=== PATIENT | female | born 1995 | race American Indian/Alaskan Native ===

== ENCOUNTER 2025-08-09 15:09 | Inpatient (IN) | payer BC ==
[2025-08-09] MEDS ORDERED: Sodium Chloride 0.9% 10 ML Syringe FLUSH PRN (16:20)
[2025-08-09] MEDS ORDERED: Carboprost Tromethamine 250 MCG/1 mL Vial IM PRN (16:20)
[2025-08-09] MEDS ORDERED: Water For Irrigation,Sterile 1,000 ML Container IRR PRN (16:20)
[2025-08-09] MEDS ORDERED: Ondansetron 4 MG/2 ML SDV IVPUSH PRN (16:20)
[2025-08-09] MEDS ORDERED: Sodium Chloride 0.9% 2.5 ML Syringe FLUSH PRN (16:20)
[2025-08-09] MEDS ORDERED: Oxytocin/0.9 % Sodium Chloride 30 UNIT/500 ML BAG IV SCH (16:30)
[2025-08-09 16:33] LABS: MEAN PLATELET VOLUME 12.5 fL (9.4-12.3); NRBC ABSOLUTE 0.00 K/uL (0.00-0.02); NRBC PERCENT 0.0 /100WBC (0.0-0.2); PLATELET COUNT,PLT 238 K/uL (150-400); RED BLOOD CELL COUNT 4.77 M/uL (4.10-5.30); WHITE BLOOD CELL COUNT,WBC 10.60 K/uL (3.9-11.3)
[2025-08-09] MEDS ORDERED: Terbutaline 1 MG/ML SDV SUBCUT PRN (18:01)
[2025-08-09] MEDS: Lactated Ringers 1,000 ML IV SCH (18:42)
[2025-08-09] MEDS: Oxytocin/0.9 % Sodium Chloride 30 UNIT/500 ML BAG IV SCH (18:43)
[2025-08-09] MEDS: Butorphanol 1 MG/ML SDV IVPUSH PRN (22:12)
[2025-08-09] MEDS ORDERED: Witch Hazel Medicated Pads 40/Jar TOP PRN (23:51)
[2025-08-09] MEDS ORDERED: Aluminum Hydroxide/Magnesium Hydroxide/Simethicone Susp 30 ML Cup PO PRN (23:51)
[2025-08-09] MEDS ORDERED: Benzocaine/Menthol 20%-0.5% Spray 78 GM Cannister TOP PRN (23:51)
[2025-08-09] MEDS ORDERED: Lanolin 100% Cream 7 GM Tube TOP PRN (23:51)
[2025-08-10 00:22] LABS: PH,UMBILICAL ARTERIAL 7.179 (7.18-7.38)
[2025-08-10 00:23] LABS: PH,UMBILICAL VENOUS 7.289 (7.25-7.45)
[2025-08-10 06:43] LABS: BASOPHILS ABSOLUTE AUTO 0.05 K/uL (0.00-0.20); BASOPHILS PERCENT AUTO 0.3 % (0.0-1.0); EOSINOPHILS ABSOLUTE AUTO 0.01 K/uL (0.00-0.45); EOSINOPHILS PERCENT AUTO 0.1 % (0.0-6.0); IMMATURE GRAN ABSOLUTE AUTO 0.06 K/uL (0.00-0.05); IMMATURE GRAN PERCENT AUTO 0.4 % (0.0-0.4); LYMPHOCYTES ABSOLUTE AUTO 1.81 K/uL (1.00-4.80); LYMPHOCYTES PERCENT AUTO 10.9 % (24.0-44.0); MEAN PLATELET VOLUME 11.8 fL (9.4-12.3); MONOCYTES ABSOLUTE AUTO 1.07 K/uL (0.00-0.80); MONOCYTES PERCENT AUTO 6.4 % (0.0-8.0); NEUTROPHILS ABSOLUTE AUTO 13.60 K/uL (1.80-7.70); NEUTROPHILS PERCENT AUTO 81.9 % (41.0-71.0); NRBC ABSOLUTE 0.00 K/uL (0.00-0.02); NRBC PERCENT 0.0 /100WBC (0.0-0.2); PLATELET COUNT,PLT 240 K/uL (150-400); RED BLOOD CELL COUNT 4.46 M/uL (4.10-5.30); WHITE BLOOD CELL COUNT,WBC 16.60 K/uL (3.9-11.3)
== END 2025-08-11 19:39 | disposition home or self-care (01) | DRG 560 ==
LOC: MW.OB 15:09 → INTOOBSV 15:09 → OBSVTOIN 23:35 → MW.OB 23:35
PROVIDERS: ADMIT Obstetrics & Gynecology; ATTEND Obstetrics & Gynecology Obstetrics
PROC: 10E0XZZ Delivery of Products of Conception, External Approach (ICD-10-PCS; principal; 2025-08-09)
PROC: 10907ZC Drainage of Amniotic Fluid, Therapeutic from Products of Conception, Via Natural or Artificial Opening (ICD-10-PCS; 2025-08-09)
PROC: 3E033VJ Introduction of Other Hormone into Peripheral Vein, Percutaneous Approach (ICD-10-PCS; 2025-08-09)
PROC: 0KQM0ZZ Repair Perineum Muscle, Open Approach (ICD-10-PCS; 2025-08-09)
DX: O48.0 Post-term pregnancy (principal); Z3A.41 41 weeks gestation of pregnancy; Z37.0 Single live birth; O69.1XX0 Labor and delivery complicated by cord around neck, with compression, not applicable or unspecified; O70.1 Second degree perineal laceration during delivery; O99.214 Obesity complicating childbirth; E66.01 Morbid (severe) obesity due to excess calories
CPT/HCPCS: 36415; 59020; 59409; 76805; 76805-26; 76819; 82803; 85025; 85027; 86592; 86850; 86900; 86901; A9270-GY; J0595; J2590; J7120